=== PATIENT | male | born 1960 | race Caucasian/White ===

== ENCOUNTER 2024-07-28 12:27 | Emergency (ER) | payer OTHER, SELFPAY ==
[2024-07-28 12:29] VITALS: BP 173/95
[2024-07-28 13:20] LABS: % Basophils 0.2 % (0-2); % Eosinophils 0.1 % (0-6); % Immature Granulocytes 0.4 % (0-0.5); % Lymphocytes 6.7 % (20.5-51.1); % Monocytes 3.3 % (1.7-9.3); % Neutrophils 89.3 % (42.2-75.2); Absolute Immature Granulocytes 0.1 10^3/uL (0-0.05); Absolute Lymphocytes 0.9 10^3/uL (1.2-3.4); Absolute Monocytes 0.4 10^3/uL (0.1-0.6); Absolute Neutrophils 11.7 10^3/uL (1.4-6.5); Hematocrit 46.2 % (39.0-52.0); Hemoglobin 15.8 g/dL (13.0-18.0); Mean Corp Hgb Conc. 34.2 g/dL (33.0-37.0); Mean Corpuscular Hgb 33.1 pg (27.0-31.0); Mean Corpuscular Volume 96.9 fL (80.0-94.0); Nucleated Red Blood Cells % 0 % (-); Platelet Count 281 10^3/uL (130-400); Red Blood Cell Count 4.77 10^6/uL (4.70-6.10); Red Cell Dist. Width 13.3 % (11.5-14.5); White Blood Cell Count 13.1 10^3/uL (4.8-10.8)
[2024-07-28 13:41] LABS: ALT (SGPT) 24 U/L (0-50); AST (SGOT) 28 U/L (17-59); Albumin 4.9 g/dl (3.5-5.0); Alkaline Phosphatase 86 U/L (38-126); Blood Urea Nitrogen 14 mg/dl (9-20); Calcium 9.8 mg/dl (8.4-10.2); Carbon Dioxide 29 mmol/L (22-30); Chloride 107 mmol/L (98-107); Glucose 124 mg/dl (70-99); Sodium 146 mmol/L (135-145); Total Bilirubin 0.5 mg/dl (0.2-1.3); Total Protein 7.7 g/dl (6.3-8.2); eGFR > 60.00
[2024-07-28 14:27] VITALS: BP 169/75
[2024-07-28 14:31] VITALS: BMI 20.1
--- NOTE | 2024-07-28 14:57 | ED.GENMED ---
History of Present Illness
General
Chief Complaint: Withdrawal Symptoms
Source: patient and family (Daughter)
Exam Limitations: none
Time Seen by Provider: 07/28/24 13:53
Nursing documentation reviewed up to this point in time: agreed with
History of Present Illness
History of Present Illness:
The patient is a pleasant 64-year-old man with a past medical history of Crohn's disease for which he reports that he has been on Percocet for many years for chronic pain related to joints and other Crohn's related issues. Patient reports that he
ran out of Percocet and has had difficulty filling it due to the fact that his pharmacy ran out of Percocet. Patient reports he has not had any Percocet for about 3 days. Patient reports he takes 10 mg of oxycodone 4 times a day chronically.
Patient reports nausea and vomiting which he attributes to Percocet withdrawal. He denies specific abdominal pain. He denies fever and blood in the stool. Patient is not concerned about a Crohn's flare. He reports that he will be able to fill
his Percocet prescription on Tuesday but is requesting 2 days worth of Percocet.
Past History
Past History
ED Past Medical History: HTN, Psychiatric and Other (Crohn's disease)
ED Past Surgical History: Bowel resection
Social History
Tobacco: Smoker
Alcohol: Daily
Drug: None
Personal:
Living: with family
Employment: Employed
Family History
Family History: Other
Review of Systems
Review of Systems
Allergies reviewed?: Yes
All Other Systems: ROS reviewed and negative except as documented in HPI and ROS
Constitutional: Reports no symptoms
EENT: Reports no symptoms
Respiratory: Reports no symptoms
Cardiac: Reports no symptoms
ABD/GI: Reports nausea, vomiting and diarrhea
: Reports no symptoms
Musculoskeletal: Reports no symptoms
Skin: Reports no symptoms
Neurological: Reports no symptoms
Endocrine: Reports no symptoms
Hematologic/Lymphatic: Reports no symptoms
Psychiatric: Reports no symptoms
Phy Exam
Physical Exam
Physical Exam:
Physical Exam
General: no apparent distress, not acutely ill
Neck: supple. no meningeal signs. normal psoterior pharynx
Heart: s1/s2 regular rate and rhythm, no murmur. equal radial pulses.
Lungs: no acute respiratory distress. clear bilaterally
Abdomen: Normal bowel sounds, soft and nontender throughout
Neuro: alert and oriented. no focal neurological deficits
Skin: no rash
Psychiatric: well kept. interactive and cooperative
Extremities: no edema. no calf tenderness. negative homans. good distal pulses
Course
Orders/Labs/Results
Orders:
Orders
07/28/24 12:48
Electrocardiogram (*1) Urgent
Reason for Study: Fatigue / Weakness
EKG- Treatment ONCE
07/28/24 13:14
Complete Blood Count/With Diff Urgent
Comprehensive Metabolic Panel Urgent
07/28/24 14:56
Oxycodone/Acetaminophen [Percocet 5/325] 2 tablet PO NOW STA
Abnormal Lab Results
07/28/24
13:14
WBC 13.1 H 10^3/uL
(4.8-10.8)
MCV 96.9 H fL
(80.0-94.0)
MCH 33.1 H pg
(27.0-31.0)
Abs Immat Gran (auto) 0.1 H 10^3/uL
(0-0.05)
Absolute Neuts (auto) 11.7 H 10^3/uL
(1.4-6.5)
Absolute Lymphs (auto) 0.9 L 10^3/uL
(1.2-3.4)
Neutrophils % 89.3 H %
(42.2-75.2)
Lymphocytes % 6.7 L %
(20.5-51.1)
Sodium 146 H mmol/L
(135-145)
Glucose 124 H mg/dl
(70-99)
07/28/24 13:14
07/28/24 13:14
Vital Signs
Initial and Last Documented VS:
Initial Vital Signs
Temp Pulse Resp BP Pulse Ox
98.7 F 84 16 173/95 99
07/28/24 12:29 07/28/24 12:29 07/28/24 12:29 07/28/24 12:29 07/28/24 12:29
Last Documented Vital Signs
Temp Pulse Resp BP Pulse Ox
98.7 F 84 16 169/75 99
07/28/24 12:29 07/28/24 12:29 07/28/24 12:29 07/28/24 14:27 07/28/24 14:45
MDM/Problems Addressed
Differential Diagnosis Includes:
Opioid withdrawal, viral enteritis, Crohn's flare
MDM/Problems Addressed:
Patient presents with acute nausea and vomiting which she attributes to opioid withdrawal
Chronic conditions affecting care:
Crohn's disease, history of bowel surgery
Acute Exacerbation and/or Progression of Chronic Illness:
Patient may have acute exacerbation of chronic Crohn's
*Pulse Oximetry
Patient hypoxic: no
*EKG
Interpreted by ED Provider?: NA
*Repatcher Interpretation
Rate: normal
Interpretation: normal
Rhythm: sinus
*Critical Care Note
Total Time (30-74mins, 75-104mins- exclusive of procedures): Not Applicable
Data Reviewed
Source: patient and family
Patient Management
Social determinants of health affecting care: Living situation and Strong social support
Escalation/DeEscalation of care consider admission/obs:
Patient adamantly denies specific abdominal pain or bloody stool. He does not feel he is having an acute Crohn's flare and does not think he needs a CAT scan done of his abdomen. Patient told to return immediately with any concerns for Crohn's
flare such as abdominal pain or fever
ED Attending Note
-
Portions of this chart may have been created with voice recognition software.� Occasional wrong word or��sound alike� substitutions may have occurred due to the inherent limitations of voice recognition software.
Discharge Plan
Departure
Patient Disposition: Home (Routine Discharge)
Date of Disposition: 07/28/24
Time of Disposition: 14:57
Patient with high blood pressure during this ER visit?: Yes
Condition: Good
Covid-19: Not Applicable
Discharge Problem:
Withdrawal from opioids
Instructions: Managing acute pain at home, BLOOD PRESSURE
Prescriptions:
New
oxycodone 5 mg tablet
10 mg PO QID PRN (Reason: Pain) Qty: 16 0RF
No Action
loperamide 2 MG capsule
3 - 4 tab PO DAILY
zolpidem 10 MG tablet
10 mg PO HS
psyllium husk [Metamucil] 0.52 GM capsule
8 cap PO DAILY
amoxicillin-pot clavulanate 1 TABLET tablet
1 tab PO BID Qty: 20 0RF
metaxalone 800 mg tablet
800 mg PO TID PRN (Reason: muscle pain) Qty: 10 0RF
azithromycin [Zithromax] 250 mg tablet
250 mg PO DAILY Qty: 6 0RF
Rx Instructions:
500mg day 1, 250mg days 2-5
methylprednisolone [Medrol (Dimitri)] 4 mg tablets,dose pack
See Rx Instructions .ROUTE .COMPLEX Qty: 21 0RF
Rx Instructions:
orally per package directions
albuterol sulfate [ProAir HFA] 90 mcg/actuation HFA aerosol inhaler
1 puff inhalation Q4HPRN PRN (Reason: shortness of breath) Qty: 8.5 0RF
benzonatate 200 mg capsule
200 mg PO TID PRN (Reason: cough) Qty: 30 0RF
Referrals:
Tobi Cornell, DO [Family Provider] -
Activity Restrictions/Additional Instructions:
It is very important that you return with any concerning abdominal pain or fever
Interventions
Interventions:
*Risk Screen - Suicide Last Done: 07/28/24 12:32
*General Assessment Last Done: 07/28/24 14:32
*Neglect/Abuse Screening Last Done: 07/28/24 12:32
*ED COVID-19 Vaccine History Last Done: 07/28/24 15:37
*Nursing Disposition Last Done: 07/28/24 15:37
ED- Neurological Assessment Last Done: 07/28/24 14:31
ED-Psychological Assessment Last Done: 07/28/24 14:31
Discharge Date and Time
Discharge Date/Time: 07/28/24 15:37
Print Language: BULGARIAN
[2024-07-28] MEDS: PERCOCET 5/325 2 TABLET PO (15:04)
== END 2024-07-28 15:37 | disposition home or self-care (01) ==
LOC: EMR 12:27
PROVIDERS: Emergency Medicine; EMERGENCY PHYSICIAN Emergency Medicine; FAMILY PHYSICIAN Family Medicine
DX: F11.23 Opioid dependence with withdrawal (principal); G89.29 Other chronic pain; F17.200 Nicotine dependence, unspecified, uncomplicated; I10 Essential (primary) hypertension; Z87.19 Personal history of other diseases of the digestive system
CPT/HCPCS: 99284; 80053; 85025; 93005